=== PATIENT | male | born 1995 | race Caucasian/White ===

== ENCOUNTER 2017-08-25 15:12 | Emergency (ER) | payer BC ==
[2017-08-25 15:33] VITALS: BP 115/64
--- NOTE | 2017-08-25 18:30 | ED ---
Laceration/Wound HPI - HPI Summary HPI Summary: 22 male presents to ED after sustaining a laceration to nasal bridge after falling off skateboard and hitting it against the ground just [place]. Patient states he did not hit head and denies any other injuries. Is bleeding minimally. Admits to some swelling. States tetanus was updated for college. No other complaints. No medications. No PMHx. Denies vision changes, headache, epistaxis, neck pain, abdominal pain or trouble breathing. - History of Current Complaint Stated Complaint: SKATEBOARD FALL Time Seen by Provider: 08/25/17 15:28 Hx Obtained From: Patient Mechanism of Injury: Sharp/Blunt Trauma Onset/Duration: Sudden Onset Aggravating: Movement Alleviating: Compression Timing: Constant Onset Severity: Mild Current Severity: Mild Pain Intensity: 3 Pain Scale Used: 0-10 Numeric - Allergy/Home Medications Allergies/Adverse Reactions: Allergies Allergy/AdvReac Type Severity Reaction Status Date / Time No Known Allergies Allergy Verified 08/25/17 15:32 PMH/Surg Hx/FS Hx/Imm Hx Endocrine/Hematology History: Denies: Hx Anticoagulant Therapy, Hx Blood Disorders, Hx Diabetes Cardiovascular History: Denies: Hx Hypertension Respiratory History: Denies: Hx Asthma - Surgical History Surgery Procedure, Year, and Place: none - Immunization History Date of Tetanus Vaccine: before college Immunizations Up to Date: Yes Infectious Disease History: No Infectious Disease History: Denies: Traveled Outside the [place] in Last 30 Days - Family History Known Family History: Positive: None - Social History Alcohol Use: None Substance Use Type: Reports: None Smoking Status (MU): Never Smoked Tobacco Review of Systems Constitutional: Negative Positive: Other - swelling nose Cardiovascular: Negative Respiratory: Negative Musculoskeletal: Negative Positive: Other - laceration Neurological: Negative All Other Systems Reviewed And Are Negative: Yes Physical Exam Triage Information Reviewed: Yes Vital Signs On Initial Exam: Initial Vitals Temp Pulse Resp BP Pulse Ox 97 F 65 16 115/64 99 08/25/17 15:30 08/25/17 15:30 08/25/17 15:30 08/25/17 15:30 08/25/17 15:30 Vital Signs Reviewed: Yes Appearance: Positive: Well-Appearing, No Pain Distress, Well-Nourished Skin: Positive: Warm, Skin Color Reflects Adequate Perfusion, Dry, Erythema @ - nasal bridge 1cm laceration, linear. surrounding edema. no FB or debris. minimal oozing. abrasion noted to external right nare area of nose, no bleeding. rest of skin exam normal. without ecchymosis or hematomas. Negative: Cold, Cyanosis @, Pale Head/Face: Positive: Normal Head/Face Inspection - other than skin exam noted above, Other - no epistaxis, racoon eyes, battles signs or facial bone tenderness. Negative: Scalp - no hematoma Eyes: Positive: EOMI, YONATAN, Conjunctiva Clear ENT: Positive: Normal ENT inspection, Hearing grossly normal, Pharynx normal, TMs normal, Other - no septal hematoma appreciated, no bleeding internal nares noted. patent nares and airway. Negative: Nasal congestion, Nasal drainage Neck: Positive: Supple, Nontender, No Lymphadenopathy Respiratory/Lung Sounds: Positive: Clear to Auscultation, Breath Sounds Present. Negative: Rales, Rhonchi, Wheezes Cardiovascular: Positive: Normal, RRR, Pulses are Symmetrical in both Upper and Lower Extremities. Negative: Murmur, Rub Abdomen Description: Positive: Nontender Bowel Sounds: Positive: Present Musculoskeletal: Positive: Normal, Strength/ROM Intact Neurological: Positive: Normal, Sensory/Motor Intact, Alert, Oriented to Person Place, Time, NV Bundle Intact Distally, Normal Gait - [place] Coma Scale Best Eye Response: 4 - Spontaneous Best Motor Response: 6 - Obeys Commands Best Verbal Response: 5 - Oriented Procedures - Laceration/Wound Repair 1 Location: face - nasal bridge Description: Linear Length, Depth and Shape: 1cm linear, superficial epidermal layer Irrigated w/ Saline (ccs): 200 Laceration/Wound Explored: clean, no foreign body removed Closure: Skin Adhesive, SteriStrips - 3 Diagnostics - Vital Signs Vital Signs Temp Pulse Resp BP Pulse Ox 08/25/17 15:30 97 F 65 16 115/64 99 - Laboratory Lab Statement: Any lab studies that have been ordered have been reviewed, and results considered in the medical decision making process. Laceration Repair Course/Dx - Course Course Of Treatment: laceration was cleaned and closed with skin adhesive/steri strips due to patient preference and father preference. no CT maxillofacial obtained to rule out nasal fracture also due to patient and father preference. Ibuprofen suggested for pain and inflammation at home. Laceration closed nicely , well approximated without complication. Keep clean and dry. Aware of worsening signs and symptoms to watch out for. Ice nose. Follow up with PCP for recheck. No concern for any other injuries at this time, normal neuro and PE findings. Normal vitals. - Differential Dx Differental Diagnoses: Abrasion, Abscess, Cellulitis, Fracture, Laceration - Clinical Impression Provider Diagnoses: Laceration of nose Discharge - Discharge Plan Condition: Stable Disposition: HOME Patient Education Materials: Laceration (ED), Skin Adhesive Care (ED), Steristrips (ED) Referrals: [facility] - [facility] BLACK [Primary Care Provider] - Additional Instructions: Do not get wet for atleast 48 hours. Limit getting it wet after 48 hours. Watch for signs of infection, if this occurs please seek medical attention. Keep clean and dry. Ice for nose for swelling. Let glue and steri strips remove themselves, do not pick at. IF you decide you would like imaging to make sure you did not fracture nose please return. Follow up with Cullen for recheck in 5 days.
== END 2017-08-25 18:35 | disposition home or self-care (01) ==
LOC: ED 15:12
DX: S01.21XA Laceration without foreign body of nose, initial encounter (principal); V00.131A Fall from skateboard, initial encounter; Y93.51 Activity, roller skating (inline) and skateboarding; Y92.9 Unspecified place or not applicable
CPT/HCPCS: 12011; 99281